=== PATIENT | female | born 1980 | race American Indian/Alaskan Native ===

== ENCOUNTER 2021-01-05 20:50 | Emergency (ER) | payer OTHER ==
[2021-01-05 21:57] VITALS: BP 153/84
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
== END 2021-01-06 | disposition home or self-care (01) ==
LOC: ED 20:50
DX: S39.012A Strain of muscle, fascia and tendon of lower back, initial encounter (principal); M25.541 Pain in joints of right hand; M25.562 Pain in left knee; I10 Essential (primary) hypertension; F17.200 Nicotine dependence, unspecified, uncomplicated; Z98.890 Other specified postprocedural states; Z79.899 Other long term (current) drug therapy; V49.49XA Driver injured in collision with other motor vehicles in traffic accident, initial encounter; Y93.89 Activity, other specified; Y92.410 Unspecified street and highway as the place of occurrence of the external cause; Y99.8 Other external cause status
CPT/HCPCS: 72100